=== PATIENT | male | born 1995 | race African-American/Black ===

== ENCOUNTER 2017-07-10 20:17 | Emergency (ER) | payer SELFPAY ==
[~2017-07-10] VITALS: Ht 182.9 cm; Wt 80.0 kg
[2017-07-10 20:55] VITALS: BP 162/64; PULSE 102; RESP 18; TEMP 98.4; O2SAT 98
--- NOTE | 2017-07-10 21:35 | PD ---
HPI Chief Complaint: Complaint Time Seen by Provider: 21:33 Travel History International Travel<30 days: No Contact w/Intl Traveler<30days: No Traveled to known affect area: No History of Present Illness HPI 21-year-old male patient presents to the ER today because he has had several days history of burning at the tip of his penis. He denies any fevers, abdominal pains, or any other issues. He has been sexually active about a week and a half ago, but it was oral sex which he states he use condoms for. Modifying Factors: None Associated Signs & Symptoms: Burning at the tip of the penis Risk Factors: Recent sexual contact PFSH Past Medical History Medical History: Denies Significant Hx Diminished Hearing: No Tetanus Vaccination: Unknown Influenza Vaccination: No Past Surgical History Surgical History: No Previous Surgery Social History Alcohol Use: No Tobacco Use: No Substance Use: No Allergies-Medications (Allergen,Severity, Reaction): Coded Allergies: No Known Allergies (Unverified , 07/10/17) Reported Meds & Prescriptions Reported Meds & Active Scripts Active Macrobid (Nitrofurantoin Monoh/Nitrofur Macro) 100 Mg Cap 100 Mg PO BID 7 Days Review of Systems Except as stated in HPI: all other systems reviewed are Neg Physical Exam Narrative GENERAL: Well-developed young -[place] male patient currently in no acute distress. Awake and oriented 3. SKIN: Focused skin assessment warm/dry. HEAD: Atraumatic. Normocephalic. EYES: Pupils equal and round. No scleral icterus. No injection or drainage. ENT: No nasal bleeding or discharge. Mucous membranes pink and moist. NECK: Trachea midline. No JVD. CARDIOVASCULAR: Regular rate and rhythm. No murmur appreciated. RESPIRATORY: No accessory muscle use. Clear to auscultation. Breath sounds equal bilaterally. GASTROINTESTINAL: Abdomen soft, non-tender, nondistended. Hepatic and splenic margins not palpable. GENITOURINARY: Circumcised. Testes descended bilaterally without evidence of rotation. No lesions or erythema. No urethral discharge. MUSCULOSKELETAL: No obvious deformities. No clubbing. No cyanosis. No edema. NEUROLOGICAL: Awake and alert. No obvious cranial nerve deficits. Motor grossly within normal limits. Normal speech. PSYCHIATRIC: Appropriate mood and affect; insight and judgment normal. Data Data Last Documented VS Vital Signs Date Time Temp Pulse Resp B/P (MAP) Pulse Ox O2 Delivery O2 Flow Rate FiO2 07/10/17 20:55 98.4 102 18 162/64 (96) 98 Orders Orders Urinalysis - C+S If Indicated (07/10/17 21:33) Gc And Chlamydia Pcr (07/10/17 21:35) Sodium Chloride 0.9% Flush (Ns Flush) (07/10/17 21:45) Urine Culture (07/10/17 21:35) Azithromycin Powd Pack (Zithromax Powd P (07/10/17 22:15) Ceftriaxone Inj (Rocephin Inj) (07/10/17 22:15) Lidocaine 1% Inj (50 Ml) (Xylocaine 1% I (07/10/17 22:15) Ed Discharge Order (07/10/17 22:04) Labs Laboratory Tests Test 07/10/17 21:35 Urine Color YELLOW Urine Turbidity CLEAR Urine pH 5.5 Urine Specific [place] 1.029 Urine Protein TRACE mg/dL Urine Glucose (UA) NEG mg/dL Urine Ketones NEG mg/dL Urine Occult Blood NEG Urine Nitrite NEG Urine Bilirubin NEG Urine Urobilinogen LESS THAN 2.0 MG/DL Urine Leukocyte Esterase MOD Urine RBC 2 /hpf Urine WBC 21 /hpf Urine Mucus FEW /lpf Microscopic Urinalysis Comment CULTURE INDICATED MDM Medical Decision Making Medical Screen Exam Complete: Yes Emergency Medical Condition: Yes Medical Record Reviewed: Yes Differential Diagnosis UTI versus urethritis Narrative Course UA shows signs of UTI. At this point, my plan would be to treat his UTI and have him follow-up as needed. Return for any worsening in pain or discomfort. The plan has been discussed with him and he states understanding. In addition, considering his history of sexual activity, I would also cover him for possible underlying urethritis. Diagnosis Primary Impression: UTI (urinary tract infection) Med/Other Pt SpecificInfo: Prescription(s) given Scripts Nitrofurantoin Monohydrate Macrocrystals (Macrobid) 100 Mg Cap 100 MG PO BID for Infection for 7 Days, #14 CAP 0 Refills Prov: Niharika Carver MD 07/10/17 Disposition: 01 DISCHARGE HOME Condition: Stable Niharika Carver MD Jul 10, 2017 21:35
[2017-07-10] MEDS ORDERED: SODIUM CHLORIDE 0.9% FLUSH 10 ML FLUSH IVF PRN (21:45)
[2017-07-10 21:59] LABS: BILIRUBIN, URINE NEG (NEG); BLOOD, URINE NEG (NEG); GLUCOSE,URINE NEG (NEG); KETONE, URINE NEG (NEG); MUCUS URINE FEW /lpf (OCC); NITRITE,URINE NEG (NEG); PH, URINE 5.5 (5.0-8.5); URINE COLOR YELLOW (YELLW/STRAW); URINE LEUKOCYTE ESTERASE MOD (NEG)
[2017-07-10] MEDS ORDERED: MACR100C2 PO (22:02)
[2017-07-10] MEDS ORDERED: cefTRIAXone 250 MG VIAL IM ONE (22:15)
[2017-07-10] MEDS ORDERED: AZITHROMYCIN PWD FOR SUSP 1 GM PACKET PO ONE (22:15)
[2017-07-10] MEDS ORDERED: LIDOCAINE HCL 1% 50 ML VIAL XX ONE (22:15)
[2017-07-10] MEDS ORDERED: LIDOCAINE HCL 1% PF 2 ML VIAL ONE (22:23)
== END 2017-07-10 23:07 | disposition home or self-care (01) ==
LOC: NEPD 20:17
DX: N39.0 Urinary tract infection, site not specified (principal)
CPT/HCPCS: 81001; 87086; 87491; 87591; 96372; 99283; J0696

== ENCOUNTER 2017-09-06 01:43 | Emergency (ER) | payer SELFPAY ==
[~2017-09-06] VITALS: Ht 175.3 cm; Wt 80.0 kg
[~2017-09-06 01:43] MED LIST: MACR100C2 PO
[2017-09-06 02:07] VITALS: BP 143/67; PULSE 50; RESP 14; TEMP 98.3; O2SAT 98
[2017-09-06 02:34] LABS: BILIRUBIN, URINE NEG (NEG); BLOOD, URINE NEG (NEG); GLUCOSE,URINE NEG (NEG); KETONE, URINE NEG (NEG); MUCUS URINE FEW /lpf (OCC); NITRITE,URINE NEG (NEG); URINE COLOR YELLOW (YELLW/STRAW); URINE LEUKOCYTE ESTERASE NEG (NEG)
--- NOTE | 2017-09-06 03:17 | PD ---
HPI Chief Complaint: Complaint Time Seen by Provider: 03:07 Travel History International Travel<30 days: No Contact w/Intl Traveler<30days: No Traveled to known affect area: No History of Present Illness HPI 21-year-old black male presents emergency department with complaints of increased urinary frequency and urgency today. 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 He claims that back in June he was treated for urinary tract infection. Review of the medical record indicates that he had WBCs in his urine but his culture was negative. No bacteria. Patient also tested negative for gonorrhea chlamydia. Patient today denies any urethral symptoms of burning. No discharge. PFSH Past Medical History Medical History: Denies Significant Hx Diminished Hearing: No Tetanus Vaccination: < 5 Years Influenza Vaccination: No Past Surgical History Surgical History: No Previous Surgery Social History Alcohol Use: No Tobacco Use: No Substance Use: No Allergies-Medications (Allergen,Severity, Reaction): Coded Allergies: No Known Allergies (Unverified , 07/10/17) Reported Meds & Prescriptions Reported Meds & Active Scripts Active No Active Prescriptions or Reported Medications Review of Systems General / Constitutional: No: Fever Eyes: No: Visual changes HENT: No: Headaches Cardiovascular: No: Chest Pain or Discomfort Respiratory: No: Shortness of Breath Gastrointestinal: No: Abdominal Pain Genitourinary: Positive: Urgency, Frequency, No: Dysuria Musculoskeletal: No: Pain Skin: No Rash Neurologic: No: Weakness Psychiatric: No: Depression Endocrine: No: Polydipsia Hematologic/Lymphatic: No: Easy Bruising Physical Exam Narrative GENERAL: This is a well-nourished, well-developed patient, in no apparent distress. SKIN: No rashes, ecchymoses or lesions. Warm and dry. HEAD: Atraumatic. Normocephalic. EYES: PERRL, EOMI, no discharge or injection. No scleral icterus. EARS: Clear NOSE: Nasal turbinates appear normal. THROAT: Mucosa pink and moist. Airway patent. NECK: Trachea midline. supple, moves head freely. LUNGS: Clear to auscultation. CV: Regular in rhythm. ABDOMEN: Soft nontender. EXT: No clubbing cyanosis or edema. Data Data Last Documented VS Vital Signs Date Time Temp Pulse Resp B/P (MAP) Pulse Ox O2 Delivery O2 Flow Rate FiO2 4/27/18 02:07 98.3 50 14 143/67 (92) 98 Orders Orders Urinalysis - C+S If Indicated (09/06/17 02:12) Ed Discharge Order (09/06/17 03:14) Labs Laboratory Tests Test 09/06/17 02:10 Urine Color YELLOW Urine Turbidity CLEAR Urine pH 6.0 Urine Specific [place] 1.021 Urine Protein NEG mg/dL Urine Glucose (UA) NEG mg/dL Urine Ketones NEG mg/dL Urine Occult Blood NEG Urine Nitrite NEG Urine Bilirubin NEG Urine Urobilinogen LESS THAN 2.0 MG/DL Urine Leukocyte Esterase NEG Urine RBC LESS THAN 1 /hpf Urine WBC LESS THAN 1 /hpf Urine Mucus FEW /lpf Microscopic Urinalysis Comment CULT NOT INDICATED MDM Medical Decision Making Medical Screen Exam Complete: Yes Emergency Medical Condition: Yes Medical Record Reviewed: Yes Interpretation(s) Laboratory Tests Test 09/06/17 02:10 Urine Color YELLOW Urine Turbidity CLEAR Urine pH 6.0 Urine Specific [place] 1.021 Urine Protein NEG mg/dL Urine Glucose (UA) NEG mg/dL Urine Ketones NEG mg/dL Urine Occult Blood NEG Urine Nitrite NEG Urine Bilirubin NEG Urine Urobilinogen LESS THAN 2.0 MG/DL Urine Leukocyte Esterase NEG Urine RBC LESS THAN 1 /hpf Urine WBC LESS THAN 1 /hpf Urine Mucus FEW /lpf Microscopic Urinalysis Comment CULT NOT INDICATED Differential Diagnosis MDM: Moderate Differential diagnoses: Chlamydia, gonorrhea, syphilis, chancroid, hepatitis, HIV, herpes, UTI Narrative Course Patient's urine is negative. Patient is encouraged to follow-up with the clinic at school and be tested for STDs. This is nonspecific urethritis Diagnosis Primary Impression: Nonspecific urethritis Patient Instructions: General Instructions Additional Instructions: Rest. Force fluids. Follow-up the clinic at school tomorrow for STD testing. Med/Other Pt SpecificInfo: No Meds Exist/No RX given Scripts No Active Prescriptions or Reported Meds Disposition: DISCHARGE HOME Condition: Stable Terrance Weiss Sep 06, 2017 03:17
== END 2017-09-06 03:37 | disposition home or self-care (01) ==
LOC: NEPD 01:43
DX: N34.1 Nonspecific urethritis (principal)
CPT/HCPCS: 81001; 99283

== ENCOUNTER 2017-09-06 21:16 | Emergency (ER) | payer SELFPAY ==
[~2017-09-06] VITALS: Ht 177.8 cm; Wt 80.0 kg
[2017-09-06 21:29] VITALS: BP 143/76; PULSE 63; RESP 16; TEMP 97.7; O2SAT 100
--- NOTE | 2017-09-06 22:00 | PD ---
HPI Chief Complaint: Complaint Time Seen by Provider: 21:52 Travel History International Travel<30 days: No Contact w/Intl Traveler<30days: No Traveled to known affect area: No History of Present Illness HPI 21-year-old male presents for evaluation of urinary urgency and increased urinary frequency. Symptoms started yesterday. He reports that he is urinating more frequently than usual even when there is no much urine left in his bladder. He denies dysuria. Denies any unusual urethral discharge. Denies any testicular scrotal pain, abdominal pain, nausea vomiting, flank pain. Reports that he has never had this problem before. He is sexually active with one partner. No other complaints. PFSH Past Medical History Medical History: Denies Significant Hx Diminished Hearing: No Tetanus Vaccination: Unknown Influenza Vaccination: No Past Surgical History Surgical History: No Previous Surgery Social History Alcohol Use: No Tobacco Use: No Substance Use: No Allergies-Medications (Allergen,Severity, Reaction): Coded Allergies: No Known Allergies (Unverified , 09/06/17) Reported Meds & Prescriptions Reported Meds & Active Scripts Active No Active Prescriptions or Reported Medications Review of Systems Except as stated in HPI: all other systems reviewed are Neg Physical Exam Narrative GENERAL: Well-nourished male in no acute distress SKIN: Warm and dry. HEAD: Atraumatic. Normocephalic. EYES: Pupils equal and round. No scleral icterus. No injection or drainage. ENT: No nasal bleeding or discharge. Mucous membranes pink and moist. NECK: Trachea midline. No JVD. CARDIOVASCULAR: Regular rate and rhythm. No murmur appreciated. RESPIRATORY: No accessory muscle use. Clear to auscultation. Breath sounds equal bilaterally. GASTROINTESTINAL: Abdomen soft, non-tender, nondistended. Hepatic and splenic margins not palpable. examination reveals descended testicles, circumcised penis, no urethral discharge. Data Data Last Documented VS Vital Signs Date Time Temp Pulse Resp B/P (MAP) Pulse Ox O2 Delivery O2 Flow Rate FiO2 09/06/17 21:29 97.7 63 16 143/76 (98) 100 Orders Orders Urinalysis - C+S If Indicated (09/06/17 21:57) Gc And Chlamydia Pcr (09/06/17 21:57) Ed Discharge Order (09/06/17 23:26) Labs Laboratory Tests Test 09/06/17 22:50 Urine Color YELLOW Urine Turbidity CLEAR Urine pH 5.5 Urine Specific [place] 1.031 Urine Protein TRACE mg/dL Urine Glucose (UA) NEG mg/dL Urine Ketones NEG mg/dL Urine Occult Blood NEG Urine Nitrite NEG Urine Bilirubin NEG Urine Urobilinogen LESS THAN 2.0 MG/DL Urine Leukocyte Esterase NEG Urine WBC 1 /hpf Urine Mucus FEW /lpf Microscopic Urinalysis Comment CULT NOT INDICATED Chlamydia trachomatis DNA (PCR) NOT DETECTED Neisseria gonorrhoeae DNA (PCR) NOT DETECTED MDM Medical Decision Making Medical Screen Exam Complete: Yes Emergency Medical Condition: Yes Medical Record Reviewed: Yes Differential Diagnosis Overactive bladder disorder versus urethritis versus cystitis, proteinuria, glucosuria Narrative Course 21-year-old male presents with 2 days of increased urinary frequency and urgency. Urinalysis was obtained which is unremarkable. GC probe is negative. At this point time the plan is to discharge him, he can follow-up with a urologist if his urinary urgency persists. Diagnosis Primary Impression: Urinary urgency Referrals: Urologist Additional Instructions: Follow-up with a urologist if symptoms persist. Med/Other Pt SpecificInfo: No Change to Meds Scripts No Active Prescriptions or Reported Meds Disposition: 01 DISCHARGE HOME Condition: Stable Giles Perez Sep 06, 2017 22:00
[2017-09-06 23:19] LABS: BILIRUBIN, URINE NEG (NEG); BLOOD, URINE NEG (NEG); GLUCOSE,URINE NEG (NEG); KETONE, URINE NEG (NEG); MUCUS URINE FEW /lpf (OCC); NITRITE,URINE NEG (NEG); PH, URINE 5.5 (5.0-8.5); URINE COLOR YELLOW (YELLW/STRAW); URINE LEUKOCYTE ESTERASE NEG (NEG)
== END 2017-09-06 23:39 | disposition home or self-care (01) ==
LOC: NEPD 21:16
DX: R39.15 Urgency of urination (principal)
CPT/HCPCS: 81001; 87491; 87591; 99283